=== PATIENT | female | born 1970 | race Caucasian/White ===

== ENCOUNTER 2024-01-01 13:40 | Emergency (ER) | payer BC, SELFPAY ==
[2024-01-01 13:42] VITALS: BP 155/98
[2024-01-01 15:23] LABS: % Basophils 0.7 % (0-2); % Eosinophils 1.2 % (0-6); % Immature Granulocytes 0.2 % (0-0.5); % Lymphocytes 39.3 % (20.5-51.1); % Neutrophils 51.6 % (42.2-75.2); Absolute Eosinophils 0.1 10^3/uL (0-0.7); Absolute Lymphocytes 2.2 10^3/uL (1.2-3.4); Absolute Monocytes 0.4 10^3/uL (0.1-0.6); Absolute Neutrophils 2.9 10^3/uL (1.4-6.5); Hematocrit 41.6 % (37.0-47.0); Hemoglobin 14.4 g/dL (12.0-16.0); Mean Corp Hgb Conc. 34.6 g/dL (33.0-37.0); Mean Corpuscular Hgb 27.9 pg (27.0-31.0); Mean Corpuscular Volume 80.5 fL (81.0-99.0); Nucleated Red Blood Cells % 0 %; Platelet Count 235 10^3/uL (130-400); Red Blood Cell Count 5.17 10^6/uL (4.20-5.40); Red Cell Dist. Width 12.7 % (11.5-14.5); White Blood Cell Count 5.7 10^3/uL (4.8-10.8)
[2024-01-01 15:40] LABS: ALT (SGPT) 32 U/L (0-35); AST (SGOT) 28 U/L (14-36); Albumin 5.2 g/dl (3.5-5.0); Alkaline Phosphatase 65 U/L (38-126); Blood Urea Nitrogen 10 mg/dl (7-17); Calcium 10.1 mg/dl (8.4-10.2); Carbon Dioxide 27 mmol/L (22-30); Chloride 104 mmol/L (98-107); Creatine Phosphokinase 60 U/L (30-135); Glucose 89 mg/dl (70-99); Potassium 4.1 mmol/L (3.5-5.1); Sodium 146 mmol/L (135-145); Total Bilirubin 0.4 mg/dl (0.2-1.3); Total Protein 7.9 g/dl (6.3-8.2); eGFR > 60.00
--- NOTE | 2024-01-01 15:46 | ED.GENMED ---
History of Present Illness
General
Chief Complaint: Musculo-Skeletal Complaint
Source: patient and spouse
Time Seen by Provider: 01/01/24 14:09
History of Present Illness
History of Present Illness:
This is a 53-year-old female with a history of hypertension who presents for evaluation of left-sided tremors. She states the left leg and left arm have been tremulous. She has a PCP appointment this week. Patient admits that the leg seems worse
than the arm and the leg does feel little bit weaker than the arm. No speech changes. No loss of vision but admits that she did see an [facility] plasma center a few weeks back for a crescent shaped abnormality in the left vision that has since resolved.
No headaches. No speech changes. No sensory changes.
Past History
Past History
ED Past Medical History: Other (Hypertension, endometriosis)
ED Past Surgical History:
Social History
Tobacco: Non-smoker
Alcohol: None
Drug: None
Personal:
Living: with family
Phy Exam
Physical Exam
Physical Exam:
CONSTITUTIONAL Patient alert and oriented to person, place and time. Well-appearing. Vital signs reviewed.
HEAD atraumatic, normocephalic.
EYES eyelids normal to inspection, Pupils equally round and reactive to light, Extraocular muscles intact, Conjunctiva normal, Sclera normal.
NECK normal range of motion, Trachea midline, no jugular venous distention.
RESPIRATORY CHEST No respiratory distress noted, Chest expansion equal, Bilateral breath sounds clear.
CARDIOVASCULAR regular rate and rhythm, Heart sounds normal.
ABDOMEN abdomen nontender, Bowel sounds normal. No distention.
BACK normal inspection, no obvious deformities
UPPER EXTREMITY range of motion normal, Motor strength normal, no cyanosis, no edema.
LOWER EXTREMITY range of motion normal, Motor strength normal, no cyanosis, no edema.
NEURO Speech normal, No focal motor deficits, [place] coma scale 15, Memory normal, Cranial Nerves intact to screening exam. Normal [id number]. No pronator drift. DTRs slightly hyperreflexic with slightly more hyperreflexia on the left
lower extremity versus the right. No clonus. No asterixis.
SKIN skin warm, dry, and normal in color.
PSYCHIATRIC patient oriented to person place and time, Normal affect.
Course
Orders/Labs/Results
Orders:
Orders
01/01/24 14:51
CT Head W/o Iv Contrast Urgent
Comment:
Reason For Exam: L sided tremors, weakness
01/01/24 15:17
CPK [Creatine Phosphokinase] Urgent
Complete Blood Count/With Diff Urgent
Comprehensive Metabolic Panel Urgent
Abnormal Lab Results
01/01/24
15:17
MCV 80.5 L fL
(81.0-99.0)
MPV 11.0 H fL
(7.4-10.4)
Sodium 146 H mmol/L
(135-145)
Albumin 5.2 H g/dl
(3.5-5.0)
01/01/24 15:17
01/01/24 15:17
Vital Signs
Initial and Last Documented VS:
Initial Vital Signs
Temp Pulse Resp BP Pulse Ox
97.6 F 98 18 155/98 94
01/01/24 13:42 01/01/24 13:42 01/01/24 13:42 01/01/24 13:42 01/01/24 13:42
Last Documented Vital Signs
Temp Pulse Resp BP Pulse Ox
97.6 F 91 16 155/98 94
01/01/24 13:42 01/01/24 14:45 01/01/24 14:45 01/01/24 13:42 01/01/24 13:42
MDM/Problems Addressed
MDM/Problems Addressed:
Tremors
*Radiology
Radiology exam reviewed: radiology read reviewed
*Pulse Oximetry
Patient hypoxic: no
*Critical Care Note
Total Time (30-74mins, 75-104mins- exclusive of procedures): Not Applicable
Data Reviewed
Source: patient and spouse
Patient Management
Escalation/DeEscalation of care consider admission/obs:
Patient appears well and has nonfocal motor exam. Her symptoms are in the leg and the arm but are mild. Her strength is normal on my exam. She does need further workup. She does have some pain in her left upper buttocks which makes me wonder if
it was a nerve condition. However she does feel like there is some subtle symptoms in her upper extremity. I do think it is reasonable for outpatient follow-up. Likely will need MRI and further workup with neurology
ED Attending Note
-
Portions of this chart may have been created with voice recognition software.� Occasional wrong word or��sound alike� substitutions may have occurred due to the inherent limitations of voice recognition software.
Discharge Plan
Departure
Patient Disposition: Home (Routine Discharge)
Date of Disposition: 01/01/24
Time of Disposition: 17:09
Patient with high blood pressure during this ER visit?: Yes
Discharge Problem:
tremors
Prescriptions:
No Action
amlodipine 2.5 MG tablet
5 mg PO DAILY
ferrous sulfate [iron] 325 MG tablet
325 mg PO DAILY
prednisone 50 mg tablet
50 mg PO DAILY Qty: 5 0RF
Referrals:
Funmi Millan MD [Family Provider] -
Activity Restrictions/Additional Instructions:
Tremors
Please see your doctor in follow-up as planned. Outpatient workup should also include an MRI of your brain. In addition, if symptoms persist, an outpatient follow-up with a neurologist should be pursued. Return immediately for worsening symptoms,
increased weakness, speech changes or any other concerns.
Interventions
Interventions:
*Risk Screen - Suicide Last Done: 01/01/24 13:42
*General Assessment Last Done: 01/01/24 13:42
*Neglect/Abuse Screening Last Done: 01/01/24 13:42
ED- Fall Risk Assessment Last Done: 01/01/24 15:35
*ED COVID-19 Vaccine History Last Done: 01/01/24 15:34
ED-Musculoskeletal Assessment Last Done: 01/01/24 15:00
Discharge Date and Time
Print Language: BRITISH
== END 2024-01-01 17:28 | disposition home or self-care (01) ==
LOC: EMR 13:40
PROVIDERS: EMERGENCY PHYSICIAN Emergency Medicine; FAMILY PHYSICIAN Family Medicine
DX: R25.1 Tremor, unspecified (principal); I10 Essential (primary) hypertension
CPT/HCPCS: 99284; 70450; 80053; 82550; 85025